=== PATIENT | female | born 1960 | race African-American/Black ===

== ENCOUNTER 2018-11-19 06:37 | Emergency (ER) | payer BC ==
[~2018-11-19] VITALS: Ht 152.4 cm; Wt 76.2 kg
[2018-11-19] MEDS ORDERED: LISI-618 PO (06:49)
[2018-11-19] MEDS ORDERED: MECL12.585 PO (07:09)
[2018-11-19] MEDS ORDERED: DiphenhydrAMINE HCL 50 MG/ML VIAL IVP ONE (07:30)
[2018-11-19] MEDS ORDERED: MethylPREDNISolone SOD SUCC 125 MG/2 ML VIAL IVP ONE (07:30)
[2018-11-19] MEDS ORDERED: IOVERSOL 350 MG/ML 100 ML VIAL ONE (07:41)
[2018-11-19] MEDS ORDERED: SODIUM CHLORIDE 0.9% 100 ML ONE (07:41)
[2018-11-19 07:56] LABS: BASOPHILS % (AUTO) 0.9 % (0.0-2.0); EOSINOPHILS % (AUTO) 2.6 % (1.0-6.0); HEMATOCRIT 38.4 % (36-46); HEMOGLOBIN 12.1 g/dL (12.0-16.0); LYMPHOCYTES # (AUTO) 1.8 K/uL (1.0-4.8); LYMPHOCYTES % (AUTO) 27.4 % (22.0-44.0); MEAN CORPUSCULAR HEMOGLOBIN 22.4 pg (26.0-34.0); MEAN CORPUSCULAR HGB CONC 31.6 G/dL (31.0-37.0); MEAN CORPUSCULAR VOLUME 71 fL (80-100); MONOCYTES # (AUTO) 0.6 K/uL (0.1-1.0); MONOCYTES % (AUTO) 9.5 % (2.0-9.0); NEUTROPHILS % (AUTO) 59.6 % (40.0-70.0); PLATELET COUNT (AUTO) 331 K/uL (150-450); RED BLOOD CELL COUNT(AUTO) 5.41 MIL/uL (4.00-5.20); RED CELL DISTRIBUTION WIDTH 14.2 % (11.5-14.5)
[2018-11-19 07:58] LABS: CALCIUM, TOTAL 8.7 mg/dL (8.8-10.5); CREATININE 1.03 mg/dL (0.60-1.30); POTASSIUM 3.6 mmol/L (3.5-5.1)
[2018-11-19 08:05] LABS: ALBUMIN 3.7 g/dL (3.4-5.0); BILIRUBIN,TOTAL 0.9 mg/dL (0.1-1.0); TOTAL PROTEIN, SERUM 7.7 g/dL (6.4-8.2)
[2018-11-19 09:25] VITALS: BP 161/95
[2018-11-19] MEDS ORDERED: AMOX TR/POT CLAV 875 MG/125 MG TABLET PO ONE (09:30)
== END 2018-11-19 09:41 | disposition home or self-care (01) ==
LOC: EMS 06:37
DX: R22.0 Localized swelling, mass and lump, head (principal); I10 Essential (primary) hypertension
CPT/HCPCS: 36415; 70487; 80053; 85025; 96374; 96375; 99284; J1200; J2930; J7050; Q9967